=== PATIENT | male | born 1975 | race Two or more races ===

== ENCOUNTER 2020-10-04 05:45 | Day surgery (SDC) | payer OTHER ==
[~2020-10-04] VITALS: Ht 175.3 cm; Wt 86.8 kg
[~2020-10-04 05:45] MED LIST: FLONASE ALLERG9.9 ML; HYDROCHLOROTH12.5 MG PO; LISINOPRIL-HCT1 EAC2 PO; OSTERA TABLET1 EACH PO; ZYRTEC10 MG PO
[2020-10-04] MEDS ORDERED: TRAMADOL HCL50 MG PO (07:25)
--- NOTE | 2020-10-04 08:04 | NUR ---
10/04/20 0804 Yvrose Ragsdale 0724 PT TO PACU ALERT, AWAKE AND TALKING, DENIES PAIN OR NAUSEA
--- NOTE | 2020-10-04 09:23 | OR ---
[facility] [address], [place] [address] Signed DATE OF OPERATION: 10/04/2020 SURGEON: Joan Ragsdale MD PREOPERATIVE DIAGNOSIS: Trigger finger, right ring and long. POSTOPERATIVE DIAGNOSIS: Trigger finger, right ring and long. PROCEDURE PERFORMED: Right trigger finger releases long and ring. ANESTHESIA: Ernestina block. GRAIN ORIGINATION SPECIALIST: None. TOURNIQUET TIME: 20 minutes. BRIEF HISTORY: Erlinda is a 44-year-old gentleman with locking in his digits. Risks and benefits of operative releases were discussed with him and he elected to proceed. DESCRIPTION OF PROCEDURE: Once consent was obtained, he was taken to the operating room. After adequate anesthesia, he was placed on operating table, all downside pressure points were well padded. The arm was prepped and draped in a standard sterile fashion after establishment of Ernestina block. The long finger was approached 1st through a 1 cm incision. This carried through skin and subcutaneous tissue. All bleeders were cauterized with bipolar. The A1 stephie was visualized using loupe magnification. It was then released using tenotomy scissors. The ring finger was approached similarly and the release was accomplished with no difficulty. There was full excursion of the tendons. The wounds were copiously irrigated with normal saline and closed using 3-0 nylon. Both wounds were then peel blocked using 0.25% Marcaine plain. The wounds were dressed with bacitracin Adaptic, 4 x 8s, and gauze. He tolerated the procedure well. All sponge, needle, and instrument counts were correct. Electronically Signed By: JOAN RAGSDALE MD 10/04/20 0923 PATIENT NAME: ERLINDA RILEY OPERATIVE REPORT DATE OF : 79 REPORT #: [id number] PHYSICIAN: JOAN RAGSDALE MD PCP: ARIEL CUELLAR MD REPORT IS CONFIDENTIAL AND NOT TO BE RELEASED WITHOUT AUTHORIZATION [address] [place], [place] [address] Signed Joan Ragsdale MD BA/MODL /[id number] Copies: ~ Electronically Signed By: JOAN RAGSDALE MD 10/04/20 0923 PATIENT NAME: ERLINDA RILEY OPERATIVE REPORT DATE OF : 79 REPORT #: [id number] PHYSICIAN: JOAN RAGSDALE MD PCP: ARIEL CUELLAR MD REPORT IS CONFIDENTIAL AND NOT TO BE RELEASED WITHOUT AUTHORIZATION
--- NOTE | 2020-10-04 14:26 | NUR ---
PT'S CALLED BECAUSE HER 'S DC INSTRUCTIONS STATE HE IS SUPPOSED TO BE TAKING DICLOFENAC BUT THE PHARMACY STATES THEY DO NOT HAVE A PRESCRIPTION FOR THIS. DR. CALZADA CONTACTED AND STATES THE PT CAN TAKE ALEVE FOR HIS PAIN INSTEAD OF THE DICLOFENAC. PT'S CONTACTED AND TOLD THIS. PT'S STATES UNDERSTANDING AND IS APPRECIATIVE OF THIS. PT STATES, "THANK YOU GUYS FOR ALL YOU DO. WE APPRECIATE YOU".
== END 2020-10-04 07:50 | disposition home or self-care (01) ==
LOC: DS 05:45 → OPS 05:45 → DS 06:45 → OPS 07:50
PROVIDERS: ATTEND Specialist
PROC: 0LN70ZZ Release Right Hand Tendon, Open Approach (ICD-10-PCS; 2020-10-04)
PROC: 0LN70ZZ Release Right Hand Tendon, Open Approach (ICD-10-PCS; principal; 2020-10-04 06:45)
DX: M65.331 Trigger finger, right middle finger (principal); M65.341 Trigger finger, right ring finger; Z88.1 Allergy status to other antibiotic agents; Z87.891 Personal history of nicotine dependence
CPT/HCPCS: J0690; J2704; J3010; J7121